=== PATIENT | male | born 1980 | race African-American/Black ===

== ENCOUNTER 2024-11-25 19:54 | Emergency (ER) | payer SELFPAY ==
[~2024-11-25] VITALS: Ht 170.2 cm; Wt 78.0 kg
[~2024-11-25 19:54] MED LIST: ADVIL; IBUPROFEN
[2024-11-25 20:10] VITALS: BP 135/89; TEMP 36.7; O2SAT 99
[2024-11-25 20:13] VITALS: PULSE 79; RESP 18; O2SAT 100
== END 2024-11-25 21:21 | disposition home or self-care (01) ==
LOC: ER 19:54
DX: R11.2 Nausea with vomiting, unspecified (principal); F12.90 Cannabis use, unspecified, uncomplicated; Z87.891 Personal history of nicotine dependence; Z79.899 Other long term (current) drug therapy
CPT/HCPCS: 99281